=== PATIENT | male | born 1985 | race American Indian/Alaskan Native ===

== ENCOUNTER 2016-12-23 19:02 | Emergency (ER) | payer MEDICAID ==
[2016-12-23 20:08] VITALS: BP 118/80
[2016-12-23 21:08] LABS: Alanine Aminotransferase 16 units/L (7-56); Albumin 4.6 g/dL (3.9-5); Albumin/Globulin Ratio 1.3 %; Alkaline Phosphatase 107 units/L (35-129); Anion Gap 18 mmol/L; BUN/Creatinine Ratio 8.33; Blood Urea Nitrogen 10 mg/dL (9-20); Calcium 9.4 mg/dL (8.4-10.2); Carbon Dioxide 27 mmol/L (22-30); Chloride 97.1 mmol/L (98-107); Glucose 99 mg/dL (75-100); Potassium 4.3 mmol/L (3.6-5.0); Sodium 138 mmol/L (137-145); Total Protein 8.2 g/dL (6.3-8.2)
[2016-12-23 21:25] LABS: Basophils % (Auto) 0.7 % (0.0-1.8); Eosinophils % (Auto) 3.1 % (0.0-4.3); Hematocrit 42.7 % (35.5-45.6); Hemoglobin 14.6 gm/dl (11.8-15.2); Mean Corpuscular HGB Conc 34 % (32-34); Mean Corpuscular Hemoglobin 32 pg (28-32); Mean Corpuscular Volume 94 fl (84-94); Platelet Count 218 K/mm3 (140-440); Red Blood Count 4.55 M/mm3 (3.65-5.03); Red Cell Distribution Width 12.4 % (13.2-15.2); White Blood Count 8.8 K/mm3 (4.5-11.0)
== END 2016-12-24 01:33 | disposition left against medical advice (07) ==
LOC: ED 19:02
DX: S80.862A Insect bite (nonvenomous), left lower leg, initial encounter (principal); W57.XXXA Bitten or stung by nonvenomous insect and other nonvenomous arthropods, initial encounter; Y93.89 Activity, other specified; Y99.9 Unspecified external cause status; Y92.89 Other specified places as the place of occurrence of the external cause; Z53.21 Procedure and treatment not carried out due to patient leaving prior to being seen by health care provider
CPT/HCPCS: 36415; 80053; 85025

== ENCOUNTER 2021-03-10 09:59 | Emergency (ER) | payer MEDICAID ==
--- NOTE | 2021-03-10 10:55 | Emergency Department Report ---
ED Extremity Problem HPI - General Chief complaint: Pain General Stated complaint: SORE FINGER Time Seen by Provider: 03/10/21 10:34 Source: patient Mode of arrival: Ambulatory Limitations: No Limitations - History of Present Illness Initial comments: 36-year-old male presents to the ER today with complaints of pain and swelling to his left third finger. Patient states that his pain started last night while he was moving furniture. He does not recall any particular injury. He states that when he woke up this morning the pain and swelling to the finger had gotten worse. He reports increased pain with movement and palpation of the finger. He denies any apparent insect bite. He does admit that about a week ago he did cut his fingernails and also pulled out a hangnail. He denies any apparent bruising or erythema. He denies fever or chills. He reports no additional symptoms at this time. He is left-hand dominant. MD Complaint: joint paint (Joint pain see) -: days(s) (1) - Related Data Previous Rx's Medication Instructions Recorded Last Taken Type Sulfamethoxazole/Trimethoprim 1 each PO BID #20 tablet 11/23/15 Unknown Rx [Bactrim DS TAB] Clindamycin [Clindamycin CAP] 300 mg PO Q6H #40 capsule 03/10/21 Unknown Rx Ibuprofen [Motrin 600 MG tab] 600 mg PO Q8H PRN #30 tablet 03/10/21 Unknown Rx Allergies Allergy/AdvReac Type Severity Reaction Status Date / Time No Known Allergies Allergy Verified 11/23/15 02:26 ED Review of Systems ROS: Stated complaint: SORE FINGER Other details as noted in HPI Comment: All other systems reviewed and negative Constitutional: denies: chills, fever Eyes: denies: eye pain, eye discharge, vision change ENT: denies: ear pain, throat pain, dental pain, hearing loss, epistaxis, congestion Respiratory: denies: cough, orthopnea, shortness of breath, SOB with exertion, SOB at rest, wheezing Cardiovascular: denies: chest pain, palpitations, dyspnea on exertion, edema, syncope, paroxysmal nocturnal dyspnea Gastrointestinal: denies: abdominal pain, nausea, diarrhea, constipation, hematemesis, melena, hematochezia Genitourinary: denies: urgency, dysuria, frequency, hematuria, discharge, testicular pain, testicular mass Musculoskeletal: joint swelling, arthralgia. denies: myalgia Skin: denies: rash, lesions, change in color, change in hair/nails, pruritus Neurological: denies: headache, weakness, numbness, paresthesias, confusion, abnormal gait, vertigo Psychiatric: denies: anxiety, depression, auditory hallucinations, visual hallucinations, homicidal thoughts, suicidal thoughts Hematological/Lymphatic: denies: easy bleeding, easy bruising, swollen glands ED Past Medical Hx - Past Medical History Previous Medical History?: No - Surgical History Past Surgical History?: No - Social History Smoking Status: Never Smoker Substance Use Type: None - Medications Home Medications: Home Medications Medication Instructions Recorded Confirmed Last Taken Type Sulfamethoxazole/Trimethoprim 1 each PO BID #20 tablet 11/23/15 Unknown Rx [Bactrim DS TAB] Clindamycin [Clindamycin CAP] 300 mg PO Q6H #40 capsule 03/10/21 Unknown Rx Ibuprofen [Motrin 600 MG tab] 600 mg PO Q8H PRN #30 tablet 03/10/21 Unknown Rx ED Physical Exam - General Limitations: No Limitations General appearance: alert, in no apparent distress - Head Head exam: Present: atraumatic, normocephalic, normal inspection - Eye Eye exam: Present: normal appearance, PERRL, EOMI Pupils: Present: normal accommodation - Neck Neck exam: Present: normal inspection, full ROM - Respiratory Respiratory exam: Present: normal lung sounds bilaterally. Absent: respiratory distress, wheezes, rales, rhonchi - Cardiovascular Cardiovascular Exam: Present: regular rate, normal rhythm, normal heart sounds - Neurological Exam Neurological exam: Present: alert, oriented X3, CN II-XII intact, normal gait - Psychiatric Psychiatric exam: Present: normal affect, normal mood - Skin Skin exam: Present: intact ED Course Vital Signs 03/10/21 10:23 Temperature 98.6 F Pulse Rate 64 Respiratory 16 Rate Blood Pressure 128/80 [Left] O2 Sat by Pulse 96 Oximetry ED Medical Decision Making - Radiology Data Radiology results: report reviewed Patient: VIDA LEMUS MR#: [id number] : 1985 Acct:[id number] Age/Sex: 36 / M ADM Date: 03/10/21 Loc: ED Attending Dr: Ordering Physician: AALIYAH ANDERSON Date of Service: 10/01/21 Procedure(s): XR finger(s) 2+V LT Accession Number(s): [id number] cc: AALIYAH ANDERSON Fluoro Time In Minutes: XR finger(s) 2+V LT INDICATION / CLINICAL INFORMATION: Finger pain. COMPARISON: None available. FINDINGS: No soft tissue abnormality by radiograph. No soft tissue gas or radiopaque foreign body. No acute fracture or malalignment. IMPRESSION: 1.No acute process. Signer Name: Jorge Gomez MD Signed: 03/10/2021 11:20 AM Workstation Name: [id number] Transcribed By: ERIC Dictated By: JORGE GOMEZ MD Electronically Authenticated By: JORGE GOMEZ MD Signed Date/Time: 03/10/21 1120 DD/ 1119 TD/TT: - Medical Decision Making 1205: X-ray of the left finger shows nothing acute. Differential diagnosis at this time is early paronychia versus felon versus cellulitis. There was no fluctuant area requiring drainage at this time. Patient will be started on oral antibiotics, and instructed to do warm compresses but he was given strict instructions to the area is getting worse to return to the ER. Patient expressed understanding and agree with plan. Patient stable at time of discharge. Critical care attestation.: If time is entered above; I have spent that time in minutes in the direct care of this critically ill patient, excluding procedure time. ED Disposition Clinical Impression: Cellulitis of finger Disposition: 01 HOME / SELF CARE / HOMELESS Is pt being admited?: No Does the pt Need Aspirin: No Condition: Stable Instructions: Cellulitis, Adult, [id number] Additional Instructions: Recommend that you start taking the clindamycin as prescribed to completion. Recommend warm water soaks to the finger. Take the ibuprofen as prescribed to help with pain. Return to the ER if symptoms worsens or changes in any way. Prescriptions: Clindamycin [Clindamycin CAP] 300 mg PO Q6H #40 capsule Ibuprofen [Motrin 600 MG tab] 600 mg PO Q8H PRN #30 tablet PRN Reason: Pain Referrals: [facility] [Provider Group] - 3-5 Days Forms: Work/School Release Form(ED) Time of Disposition: 12:01 Print Language: WALLISIAN
[2021-03-10] MEDS ORDERED: IBUPROFEN 600 MG TAB PO ONE (10:56)
--- NOTE | 2021-03-10 11:24 | XRay Report ---
XR finger(s) 2+V LT INDICATION / CLINICAL INFORMATION: Finger pain. COMPARISON: None available. FINDINGS: No soft tissue abnormality by radiograph. No soft tissue gas or radiopaque foreign body. No acute fra cture or malalignment. IMPRESSION: 1.No acute process. Signer Name: Efren Gomez MD Signed: 03/10/2021 11:20 AM Workstation Name: [email or web address]
[2021-03-10 12:21] VITALS: BP 125/94
== END 2021-03-10 12:55 | disposition home or self-care (01) ==
LOC: ED 09:59
DX: L03.012 Cellulitis of left finger (principal)
CPT/HCPCS: 99283

== ENCOUNTER 2021-03-16 16:44 | Emergency (ER) | payer MEDICAID ==
[2021-03-16 16:59] VITALS: BP 143/79
--- NOTE | 2021-03-16 18:42 | Emergency Department Report ---
ED General Adult HPI - General Chief complaint: Extremity Problem,Nontraumatic Stated complaint: RT HAND FINER SWELLING/SEEN LAST WEEK FOR SAME Time Seen by Provider: 03/16/21 18:32 Source: patient Mode of arrival: Ambulatory Limitations: No Limitations - History of Present Illness Initial comments: 36-year-old [id number] male patient presents emergency department with complaints of progressively worsening painful swelling to his left third digit for 1 week. Patient cannot recall any particular fall, trauma, or injury. He suspects there is a possibility he may have either bumped the finger on a piece of furniture or the finger may have been exposed to dust/dirt. Patient was evaluated in the ED last week for same symptoms. He was discharged home with Clindamycin and Ibuprofen. However, these medications have not been effective in relieving his symptoms. He did complete the antibiotics as directed. Denies fever, chills, wrist pain, hand pain, paresthesias, numbness, weakness, purulent drainage, bleeding. Denies all other complaints at this time. - Related Data Previous Rx's Medication Instructions Recorded Last Taken Type Sulfamethoxazole/Trimethoprim 1 each PO BID #20 tablet 11/23/15 Unknown Rx [Bactrim DS TAB] Clindamycin [Clindamycin CAP] 300 mg PO Q6H #40 capsule 03/10/21 Unknown Rx Ibuprofen [Motrin 600 MG tab] 600 mg PO Q8H PRN #30 tablet 03/10/21 Unknown Rx Naproxen 500 mg PO BID #20 tablet 03/16/21 Unknown Rx Sulfamethoxazole/Trimethoprim 1 each PO BID 7 Days tablet 03/16/21 Unknown Rx [Bactrim DS TAB] Allergies Allergy/AdvReac Type Severity Reaction Status Date / Time No Known Allergies Allergy Verified 11/23/15 02:26 ED Review of Systems ROS: Stated complaint: RT HAND FINER SWELLING/SEEN LAST WEEK FOR SAME Other details as noted in HPI Other: GENERAL: Negative for fever. CARDIOVASCULAR: Negative for chest pain. PULMONARY: Negative for shortness of breath. GASTROINTESTINAL: Negative for abdominal pain. MUSCULOSKELETAL: Positive for joint pain/swelling. NEUROLOGICAL: Negative for headache. INTEGUMENTARY: Negative for rash. ED Past Medical Hx - Past Medical History Previous Medical History?: No - Surgical History Past Surgical History?: No - Social History Smoking Status: Never Smoker Substance Use Type: None - Medications Home Medications: Home Medications Medication Instructions Recorded Confirmed Last Taken Type Sulfamethoxazole/Trimethoprim 1 each PO BID #20 tablet 11/23/15 Unknown Rx [Bactrim DS TAB] Clindamycin [Clindamycin CAP] 300 mg PO Q6H #40 capsule 03/10/21 Unknown Rx Ibuprofen [Motrin 600 MG tab] 600 mg PO Q8H PRN #30 tablet 03/10/21 Unknown Rx Naproxen 500 mg PO BID #20 tablet 03/16/21 Unknown Rx Sulfamethoxazole/Trimethoprim 1 each PO BID 7 Days tablet 03/16/21 Unknown Rx [Bactrim DS TAB] ED Physical Exam - General Limitations: No Limitations - Other Other exam information: General: Awake, appropriately interactive, no acute distress. Neck: Supple. Full range of motion intact. Cardiovascular: Normal peripheral perfusion. Pulmonary: No respiratory distress. Patient is speaking normally without use of accessory muscles. Skin: No apparent rashes or lesions. Neurological: No facial asymmetry. Speech is clear. Follows commands. Patient is alert and oriented. Musculoskeletal: Tenderness to palpation localized to the distal 1/3 of the left third digit with obvious soft tissue swelling most pronounced along the volar aspect. No fluctuance adjacent to the nailbed. No purulent drainage. No fusiform swelling involving the entire digit. No tenderness along the distribution of the corresponding tendon sheath. The finger is held in neutral position at rest. Distal neurovascular and motor/sensory function intact. Psych: Cooperative. Appropriate mood and affect. ED Course Vital Signs 03/16/21 16:58 Temperature 98.0 F Pulse Rate 52 L Respiratory 16 Rate Blood Pressure 143/79 O2 Sat by Pulse 98 Oximetry ED Medical Decision Making - Medical Decision Making Differential diagnosis including but not limited to: herpetic miriam, felon, paronychia, tenosynovitis, cellulitis, fracture, septic arthritis Patient presents to the emergency department with complaints of progressively worsening painful swelling of the left third digit for 1 week. X-rays taken during last ED visit were unremarkable. No Kanavel signs to suggest flexor tenosynovitis. Pain is proportional to exam findings without clinical evidence to suggest septic arthritis. History and exam findings consistent with felon. Patient will be discharged home with prescription for Bactrim and appropriate analgesics. Referred to hand specialist for close outpatient follow-up. Patient expressed understanding and is agreeable to plan of care. Strict return precautions provided. Repeat exam is unremarkable and benign. History, exam, diagnostic testing, and current condition do not suggest worrisome pathology to warrant further testing, continued ED treatment, admission, or surgical evaluation at this point. Given the low probability of a significant medical illness, it would be more likely to result in harm than benefit to perform further testing at this stage. Discussed findings, presumptive diagnosis, need for follow-up and specific signs/symptoms that should prompt immediate return to the emergency department. Instructions were explained in detail to the patient in addition to giving written discharge information. Patient expressed understanding and was given the opportunity to ask questions, all of which were satisfactorily answered prior to discharge home. Critical care attestation.: If time is entered above; I have spent that time in minutes in the direct care of this critically ill patient, excluding procedure time. ED Disposition Clinical Impression: Zoraida Disposition: 01 HOME / SELF CARE / HOMELESS Is pt being admited?: No Does the pt Need Aspirin: No Condition: Stable Instructions: Fingertip Infection Additional Instructions: Take Tylenol every 4 hours as needed for pain. Take Naprosyn twice daily with food as needed for pain. Take Bactrim with food as directed. Increase your dietary intake of probiotic rich foods while taking this medication. Keep left hand elevated as often as possible to reduce swelling. Apply warm compresses to the affected area 3 times daily. The area may begin to drain on its own. Do not forcefully attempt to express drainage from the area. Follow-up with hand specialist this week. See referral information below. Call tomorrow to schedule an appointment. Return to the emergency department immediately for new or worsening symptoms. Specifically, return to the emergency department immediately for fever, increased pain, worsening swelling, redness, drainage, numbness, or any other concerns. [facility] [address] [place] [id number] Prescriptions: Sulfamethoxazole/Trimethoprim [Bactrim DS TAB] 1 each PO BID 7 Days tablet Naproxen 500 mg PO BID #20 tablet Time of Disposition: 18:45
== END 2021-03-16 19:35 | disposition home or self-care (01) ==
LOC: ED 16:44
DX: L03.012 Cellulitis of left finger (principal)
CPT/HCPCS: 99281